=== PATIENT | female | born 1950 | race Caucasian/White ===

== ENCOUNTER → 2021-03-27 | Outpatient (CLI) | payer MEDICARE, OTHER ==
[~2021-03-27] MED LIST: ASPIRIN CHEWABL81 MG GT; COZAAR100 MG GT; CYMBALTA60 MG PO; DULOXETINE HCL30 MG GT; EUTHYROX75 MCG GT; FLONASE 0.05% N16 GM; FLONASE ALLER15.8 ML; FOSAMAX70 MG PO; GABAPENTIN100 MG GT; HYZAAR 100-12.1 EACH PO; IBUPROFEN600 MG GT; IMURAN50 MG PO; LIPITOR TAB 1010 MG PO; LOPRESSOR 50 MG50 MG GT; LOPRESSOR50 MG PO; MAPAP500 MG GT; METOPROLOL TART50 MG PO; PEPCID20 MG PO; PERCOCET 5/325 T1 EA PO; PLAQUENIL 200200 MG GT; PLAQUENIL 200200 MG PO; PREDNISONE5 MG PO; SYNTHROID75 MCG PO; TUMS ULTRA400 MG PO; VITAMIN D32000 UNI1 PO; VOLTAREN 0.1%2.5 ML OP
== END ==
LOC: KOH-I 09:46
DX: M25.562 Pain in left knee (principal); M25.462 Effusion, left knee
CPT/HCPCS: 73562

== ENCOUNTER → 2021-07-28 | Outpatient (CLI) | payer MEDICARE, OTHER ==
[2021-07-28 14:28] LABS: HEMOGLOBIN 12.4 gm/dl (12.3-15.3); RED BLOOD COUNT 3.7 M/UL (4.00-5.10); WHITE BLOOD COUNT 6.2 K/UL (4.5-11.0)
== END ==
LOC: LAB 13:14
PROVIDERS: Nurse Practitioner Women's Health
DX: M32.9 Systemic lupus erythematosus, unspecified (principal); D89.9 Disorder involving the immune mechanism, unspecified; M33.20 Polymyositis, organ involvement unspecified; M35.00 Sjogren syndrome, unspecified; M81.0 Age-related osteoporosis without current pathological fracture
CPT/HCPCS: 36415; 80053; 82550; 82607; 82746; 84443; 85025; 85652; 86140

== ENCOUNTER → 2021-10-05 | Outpatient (CLI) | payer MEDICARE, OTHER | LOC: KOH-I 09:33 | DX: R10.11 Right upper quadrant pain (principal); R93.5 Abnormal findings on diagnostic imaging of other abdominal regions, including retroperitoneum | CPT/HCPCS: 76700 ==

== ENCOUNTER 2021-11-05 10:49 | Emergency (ER) | payer MEDICARE, OTHER | END 2021-11-05 13:43 | disposition home or self-care (01) | LOC: ER1 10:49 | DX: S80.02XA Contusion of left knee, initial encounter (principal); S80.01XA Contusion of right knee, initial encounter; Z88.5 Allergy status to narcotic agent; Z88.8 Allergy status to other drugs, medicaments and biological substances; W19.XXXA Unspecified fall, initial encounter | CPT/HCPCS: 73552; 73562; 99283 ==

== ENCOUNTER → 2021-11-16 | Outpatient (CLI) | payer MEDICARE, OTHER ==
[~2021-11-16] MED LIST changes: +CYCLOBENZAPRINE5 MG PO; +MOBIC15 MG PO
== END ==
LOC: KOH-I 08:38
DX: M51.16 Intervertebral disc disorders with radiculopathy, lumbar region (principal); M47.26 Other spondylosis with radiculopathy, lumbar region; M48.061 Spinal stenosis, lumbar region without neurogenic claudication; M48.07 Spinal stenosis, lumbosacral region
CPT/HCPCS: 72148

== ENCOUNTER 2021-11-17 04:12 | Emergency (ER) | payer MEDICARE, OTHER ==
[~2021-11-17 04:12] MED LIST changes: -CYCLOBENZAPRINE5 MG PO; -MOBIC15 MG PO
[2021-11-17] MEDS ORDERED: MOBIC15 MG PO (04:52)
[2021-11-17] MEDS ORDERED: CYCLOBENZAPRINE5 MG PO (04:52)
== END 2021-11-17 05:55 | disposition home or self-care (01) ==
LOC: ER1 04:12
DX: M51.37 Other intervertebral disc degeneration, lumbosacral region (principal); M54.41 Lumbago with sciatica, right side; M25.461 Effusion, right knee; I10 Essential (primary) hypertension; Z79.82 Long term (current) use of aspirin; Z79.899 Other long term (current) drug therapy
CPT/HCPCS: 96372; 99283; J1100

== ENCOUNTER → 2021-12-22 | Outpatient (CLI) | payer MEDICARE, OTHER ==
[~2021-12-22] MED LIST changes: +CYCLOBENZAPRINE5 MG PO; +MOBIC15 MG PO
== END ==
LOC: KOH-I 13:46
DX: R53.1 Weakness (principal); M54.2 Cervicalgia; M47.814 Spondylosis without myelopathy or radiculopathy, thoracic region; M47.812 Spondylosis without myelopathy or radiculopathy, cervical region; M25.78 Osteophyte, vertebrae; M48.02 Spinal stenosis, cervical region
CPT/HCPCS: 72141; 72146

== ENCOUNTER → 2022-02-20 | Outpatient (CLI) | payer MEDICARE, OTHER | LOC: KOH-I 14:53 | DX: R10.31 Right lower quadrant pain (principal) | CPT/HCPCS: 73502 ==